=== PATIENT | male | born 1940 | race Caucasian/White ===

== ENCOUNTER 2020-10-02 18:34 | Emergency (ER) | payer MEDICARE, OTHER, SELFPAY ==
--- NOTE | 2020-10-02 18:42 | ED_ITS ---
HPI - Extremity Injury (Upper) General Chief Complaint: Extremity Problem,Nontraumatic Stated Complaint: left hand middle finger injury, sent by [facility] Time Seen by Provider: 10/02/20 18:35 Source: patient Mode of arrival: Ambulatory Limitations: no limitations History of Present Illness HPI narrative: 80-year-old male non diabetic, nonsmoker presents at the request of medical providers on [facility] for evaluation of a painful swollen left middle finger. He states that about 5 days ago pain and swelling at the nail fold, at the base of the fingernail and it is since developed into increasing pain and swelling on the dorsal part of his finger. He denies any injury or history of the same. He has increased pain with range of motion improvement with rest. He denies systemic findings such as fever, chills nor nausea or vomiting Handedness: right Severity: moderate Relieving factors: rest Exacerbating factors: movement of extremity Associated symptoms: denies other symptoms Treatments prior to arrival: bandage Related Data Previous Rx's Medication Instructions Recorded cephalexin [Keflex] 500 mg PO QID 7 Days #28 cap 10/02/20 hydrocodone-acetaminophen 1 tab PO Q4-6H PRN #10 tab 10/02/20 sulfamethoxazole-trimethoprim 1 tab PO BID 10 Days #20 tab 10/02/20 [Bactrim DS] Allergies Allergy/AdvReac Type Severity Reaction Status Date / Time No Known Drug Allergies Allergy Verified 10/02/20 18:50 Review of Systems Constitutional Constitutional: Denies chills, Denies fatigue, Denies fever(s), Denies frequent falls, Denies lethargy and Denies weakness Eyes Eyes: Denies change in vision, Denies eye discharge, Denies irritation and Denies loss of vision ENT Ears, Nose, Mouth, and Throat: Denies change in voice, Denies dizziness, Denies neck pain, Denies sore throat and Denies throat swelling Cardiovascular Cardiovascular: Denies chest pain, Denies irregular heart rhythm, Denies ligh theadedness, Denies palpitations, Denies dyspnea, Denies dyspnea on exertion and Denies orthopnea Respiratory Respiratory: Denies cough, Denies dyspnea, Denies dyspnea on exertion and Denies wheezing Gastrointestinal Gastrointestinal: Denies abdominal pain, Denies change in bowel habits, Denies diarrhea, Denies nausea and Denies vomiting Musculoskeletal Musculoskeletal: Denies neck pain and Denies numbness Integumentary/Breasts Skin/Breast: Denies pruritus, Reports erythema, Denies rash, Reports skin pain, Reports skin swelling and Reports wounds Neurologic Neurologic: Denies behavioral changes, Denies confusion, Denies dizziness, Denies frequent falls, Denies loss of vision, Denies numbness and Denies weakness Psychiatric Psychiatric: Denies anxiety, Denies behavioral changes, Denies confusion, Denies depression, Denies homicidal ideation and Denies suicidal ideation Endocrine Endocrine: Denies fatigue, Denies flushing and Denies palpitations Hematologic/Lymphatic Hematologic/Lymphatic: Denies easy bruising Allergic/Immunologic Allergic/Immunologic: Denies urticaria, Denies throat swelling and Denies wheezing Patient History Social History Smoking Status: Never smoker Smoking Status: Never smoker alcohol intake frequency: 0-2 drinks per day Substance Use Type: does not use Exam Narrative Exam Narrative: GEN: AOx3 and in mild distress EYES: Pupils are equal, round, and reactive to light and accommodation. Extraoccular muscles are intact bilaterally. There is no subconjunctival hemorrhage or exudate. CHEST: Lungs are clear to auscultation bilaterally and free of wheezes, rales, or rhonchi. Heart rate is regular rhythm, there are no murmurs, clicks, rubs, or gallops. There is no chest wall tenderness. ABD: Abdomen is soft and nontender. There is no guarding or rebound. Bowel sounds are normal in all 4 quadrants. There is no mass or organomegaly. EXT: Left middle finger with swelling and discoloration of nailfold. There is mild fluctuance consistent with paronychia. There is mild drainage and crusting of yellowish fluid. No subungual involvement. Dorsum of finger is erythematous, tender, indurated and without other fluctuance. Erythema and swelling extends on dorsal surface to MCP. Not circumferential. No pain along flexor surface. No pain in palm. Otherwise Full painless ROM of all extremities with no loss of sensation or strength. SKIN: Warm, pink, and dry. No erythema or rash Initial Vital Signs Initial Vital Signs: Vital Signs Temperature 96.8 F L 10/02/20 18:51 Pulse Rate 61 10/02/20 18:51 Respiratory Rate 18 02/24/21 18:51 Blood Pressure 179/93 H 10/02/20 18:51 Pulse Oximetry 99 10/02/20 18:51 Procedures Abscess I/D I&D #1: Site: hand (left middle finger paronychia) Side (if applicable): left Technique: incised with #11 blade Amount of fluid expressed (mL): 2 Irrigation: No Packing used?: none Complications: bleeding Nerve Block Nerve Block 1: Time out performed: Yes Local Anesthetic: lidocaine 1% and with bicarb Amount of anesthesia used (mL): 4 Side: left Nerve Blocks: digital Procedure Successful: Yes Patient Tolerated Procedure: Well Complications: none Course Orders Ordered: ED Orders 10/02/20 18:47 XR finger LT min 2V Stat 10/02/20 19:30 C-Reactive Protein Quant Stat Complete Blood Count AUTO DIFF Stat 10/02/20 20:28 Blood Culture Stat Discontinued Medications Hydrocodone Bitart/Acetaminophen (Hydrocodone/Acet 5/325 Prepack) 1 bottle MISC SEEINSTR ONE Stop: 10/02/20 21:11 Last Admin: 10/02/20 21:22 Dose: 1 bottle Documented by: SIMON Sodium Chloride (Normal Saline 0.9%) 1,000 mls @ 125 mls/hr IV CONT GLENNY Last Infusion: 10/02/20 21:06 Dose: 0 mls/hr Documented by: Admin: 10/02/20 19:43 Dose: 125 mls/hr Documented by: TAHMINA Cefazolin Sodium/Dextrose (Ancef) 2 gm in 100 mls @ 200 mls/hr IV NOW ONE Stop: 10/02/20 20:04 Last Infusion: 10/02/20 20:38 Dose: 0 mls/hr Documented by: Admin: 10/02/20 19:43 Dose: 200 mls/hr Documented by: TAHMINA Lidocaine/Sodium Bicarbonate (Lido 1%/Sod Bicarb 8.4% (10ml) 10 Ml Syringe) 10 ml INJ NOW ONE Stop: 10/02/20 19:41 Last Admin: 10/02/20 19:43 Dose: 10 ml Documented by: TAHMINA Trimethoprim/Sulfamethoxazole (Trimeth/Sulfa 160/800 Prepack) 1 bottle MISC SEEINSTR ONE Stop: 10/02/20 21:11 Last Admin: 10/02/20 21:22 Dose: 1 bottle Documented by: SIMON Consultations Consultation #1: seen and evaluated at bedside by Dr. Swanson (ortho). Requested that I extend the incision longitudinally a bit proximally from nail fold. In agreement with soaks, ABX, close follow up and strict return pre cautions Vital Signs Vital signs: Vital Signs - 8 hr 10/02/20 18:51 10/02/20 21:30 Temperature 96.8 F L Pulse Rate 61 57 L Respiratory Rate 18 16 Blood Pressure 179/93 H 176/84 H Pulse Oximetry 99 99 MDM - Extremity Injury (Upper) Lab Data Result diagrams: 10/02/20 19:30 Labs: Lab Results 10/02/20 10/02/20 Range/Units 19:30 19:30 WBC 8.1 (4.5-11.0) X10^3/uL RBC 4.10 L (4.5-5.9) X10^6/uL Hgb 13.5 (13.5-17.5) g/dL Hct 39.7 L (41-53) % MCV 97.0 (80-100) fL MCH 33.0 (26-34) PG MCHC 34.1 (30-36) % RDW 13.3 (11.6-14.8) % Plt Count 120 L (150-400) X10^3/uL Neut % (Auto) 75.0 (50-75) % Lymph % (Auto) 14.5 L (25-40) % [place] % (Auto) 9.6 (3-14) % Eos % (Auto) 0.4 L (2-4) % Baso % (Auto) 0.5 (0-2) % Neut # (Auto) 6100 (6211-4318) /uL Lymph # (Auto) 1200 (1594-8731) /uL [place] # (Auto) 800 (0-900) /uL Eos # (Auto) 0 (0-450) /uL Baso # (Auto) 0 (0-100) /uL C-Reactive Protein 6.5 H (<1.0) mg/dL MDM Narrative Medical decision making narrative: Pain and swelling of dorsum of finger. Started with paronychia and developed proximal cellulitus. Exam not consistent with extensive abscess or flexor tenosynovitis. Return precautions given and questions answered to his apparent satisfaction. Discharge Plan Departure Patient Disposition: Home Clinical Impression: Paronychia Cellulitis Qualifiers: Site of cellulitis: extremity Site of cellulitis of extremity: finger Laterality: left Qualified Code(s): L03.012 - Cellulitis of left finger Instructions: DI for Paronychia Activity Restrictions/Additional Instructions: *You have been diagnosed with [paronychia and cellulitis of left middle finger] *What to do: *Take medications as directed. As Dr. Rivers mention, please soak your hand warm water with antibacterial soap for 15 minutes twice daily *Follow up Dr. Swanson, call for an appointment. Let them know you were seen in the Emergency Department and that we ask that you be seen in follow up *Return to ER if you should have any new, worsening or concerning symptoms, such as [increased pain, swelling, fever > 101F, redness extending up hand and arm, or other bothersome symptoms ] Prescriptions: New hydrocodone-acetaminophen 5-325 mg tablet 1 tab PO Q4-6H PRN (Reason: pain) Qty: 10 RF: 0 sulfamethoxazole-trimethoprim [Bactrim DS] 800-160 mg tablet 1 tab PO BID 10 Days Qty: 20 RF: 0 cephalexin [Keflex] 500 mg capsule 500 mg PO QID 7 Days Qty: 28 RF: 0 Referrals: Justyna Swanson MD [Physician] -
--- NOTE | 2020-10-02 18:47 | DI.RAD.S_ITS ---
PROCEDURE: XR FINGER LT MIN 2V INDICATIONS: left middle digit injury TECHNIQUE: AP hand, 2 views of the 3rd finger(s) acquired. COMPARISON: None. FINDINGS: Bones: No fractures or dislocations. No suspicious bony lesions. Soft tissues: No suspicious soft tissue calcifications. Soft tissue swelling about the 3rd digit. No radiopaque foreign body. IMPRESSION: No fracture or dislocation. Follow-up radiographs in 10-14 days may be helpful for further evaluation. Dictated by: Maldonado Pastor M.D. on 10/02/2020 at 19:15 Approved by: Maldonado Pastor M.D. on 10/02/2020 at 19:16
[2020-10-02 18:51] VITALS: BP 179/93; PULSE 61; RESP 18; TEMP 36; O2SAT 99; BMI 22.3
[2020-10-02] MEDS: SODIUM CHLORIDE 0.9% 1,000 ML 125 ML IV (19:43)
[2020-10-02] MEDS: CEFAZOLIN 2 GM/100 ML FROZ.PIGGY IV (19:43)
[2020-10-02] MEDS: LIDO 1%/SOD BICARB 8.4% (10ML) 10 ML SYRINGE INJ (19:43)
[2020-10-02 19:47] LABS: Add Manual Diff / Slide Review NO; Basophils Absolute Auto 0 /uL (0-100); Basophils Percent Auto 0.5 % (0-2); Eosinophils Absolute Auto 0 /uL (0-450); Eosinophils Percent Auto 0.4 % (2-4); Hematocrit 39.7 % (41-53); Hemoglobin 13.5 g/dL (13.5-17.5); Lymphocytes Absolute Auto 1200 /uL (1100-4500); Lymphocytes Percent Auto 14.5 % (25-40); Mean Corpuscular HGB Conc 34.1 % (30-36); Monocytes Absolute Auto 800 /uL (0-900); Monocytes Percent Auto 9.6 % (3-14); Neutrophils Absolute Auto 6100 /uL (1500-7000); Platelet Count 120 X10^3/uL (150-400); Red Cell Distribution Width 13.3 % (11.6-14.8); White Blood Cell Count 8.1 X10^3/uL (4.5-11.0)
[2020-10-02 19:59] LABS: C-Reactive Protein Quant 6.5 mg/dL (<1.0)
[2020-10-02] MEDS: HYDROCODONE/ACET 5/325 PREPACK 1 BOTTLE MISC (21:22)
[2020-10-02] MEDS: TRIMETH/SULFA 160/800 PREPACK 1 BOTTLE MISC (21:22)
[2020-10-02 21:30] VITALS: BP 176/84; PULSE 57; RESP 16; O2SAT 99
== END 2020-10-02 21:31 | disposition home or self-care (01) ==
PROVIDERS: Emergency Provider Emergency Medicine
DX: L03.012 Cellulitis of left finger (principal)
CPT/HCPCS: 36415; 73140; 85025; 86140; 87040; 96365; 99283; 99284; J0690